=== PATIENT | male | born 1985 | race Caucasian/White ===

== ENCOUNTER 2016-12-30 20:51 | Observation (INO) | payer SELFPAY ==
[~2016-12-30] VITALS: Ht 182.9 cm; Wt 87.9 kg
[~2016-12-30 20:51] MED LIST: NO HOME MEDICATIONS
[2016-12-30 22:02] LABS: BASO # 0.1 (0.0-0.2); BASO % 0.3 % (0.0-2.0); EOS # 0.2 (0.0-0.7); EOS % 0.9 % (0-4.0); GRAN # 13.4 (1.4-6.5); GRAN % 76.8 % (42.2-75.2); HEMATOCRIT 51.9 % (42.0-52.0); HEMOGLOBIN 18.4 g/dl (13.5-18.0); LYMPH # 2.3 (1.2-3.4); LYMPH % 13.3 % (20.0-51.0); MEAN CELL VOLUME 90 fl (80.0-100.0); MEAN CORPUSCULAR HEMOGLOBIN 32 pg (27.0-31.0); MEAN CORPUSCULAR HGB CONC 36 g/dl (33.0-37.0); MEAN PLATELET VOLUME 9.4 fl (7.4-10.4); MONO # 1.5 (0.1-0.6); MONO % 8.3 % (1.7-9.3); PLATELET COUNT 336 K/mm3 (130-400); RED BLOOD COUNT 5.79 M/mm3 (4.20-5.60); REDCELL DISTRIBUTION WIDTH-CV 11.7 % (11.5-14.5); WHITE BLOOD COUNT 17.5 K/mm3 (4.8-10.8)
[2016-12-30 22:07] LABS: ADJUSTED CALCIUM 9.1 mg/dL (8.4-10.2); ALANINE AMINOTRANSFERASE 36 U/L (21-72); ALBUMIN 5.1 gm/dL (3.5-5.0); ALKALINE PHOSPHATASE 75 U/L (50-136); ANION GAP 15 mmol/L (7-16); BILIRUBIN,TOTAL 1.1 mg/dL (0.0-1.0); BLOOD UREA NITROGEN 14 mg/dL (9-20); CARBON DIOXIDE 25 mmol/L (22-30); CHLORIDE 97 mmol/L (98-107); CREATININE, serum 0.98 mg/dL (0.66-1.25); GLUCOSE 105 mg/dL (74-106); POTASSIUM 3.9 mmol/L (3.4-5.0); SODIUM 137 mmol/L (137-145); TOTAL PROTEIN 8.3 gm/dL (6.4-8.2)
[2016-12-30 22:09] LABS: ACETAMINOPHEN < 10 ug/mL (10-30); SALICYLATE < 1.0 mg/dL
[2016-12-30 22:26] LABS: AMPHETAMINE URINE NEGATIVE; BARBITURATES URINE NEGATIVE; BENZODIAZEPINES URINE NEGATIVE; BUPRENORPHINE URINE NEGATIVE; METHADONE URINE NEGATIVE; OPIATES URINE NEGATIVE; OXYCODONE URINE NEGATIVE; PHENCYCLIDINE URINE NEGATIVE; PROPOXYPHENE URINE NEGATIVE; THC CANNABINOIDS URINE POSITIVE
[2016-12-31] VITALS (551 sets, daily range): BP systolic 103–129; BP diastolic 72–84; PULSE 75–91; TEMP 97.4–98.5; O2SAT 87–100
[2017-01-01] VITALS (436 sets, daily range): BP systolic 110–142; BP diastolic 62–89; PULSE 79–112; TEMP 97–97.5; O2SAT 91–100
[2017-01-01 05:43] LABS: BASO # 0.1 (0.0-0.2); BASO % 0.6 % (0.0-2.0); EOS # 0.2 (0.0-0.7); EOS % 1.6 % (0-4.0); GRAN # 10.5 (1.4-6.5); GRAN % 74.9 % (42.2-75.2); HEMATOCRIT 45.9 % (42.0-52.0); LYMPH # 1.9 (1.2-3.4); LYMPH % 13.7 % (20.0-51.0); MEAN CELL VOLUME 92 fl (80.0-100.0); MEAN CORPUSCULAR HEMOGLOBIN 32 pg (27.0-31.0); MEAN CORPUSCULAR HGB CONC 35 g/dl (33.0-37.0); MEAN PLATELET VOLUME 9.5 fl (7.4-10.4); MONO # 1.2 (0.1-0.6); MONO % 8.8 % (1.7-9.3); PLATELET COUNT 237 K/mm3 (130-400); RED BLOOD COUNT 4.98 M/mm3 (4.20-5.60); WHITE BLOOD COUNT 14.1 K/mm3 (4.8-10.8)
[2017-01-01 05:44] LABS: HEMOGLOBIN 15.9 g/dl (13.5-18.0)
[2017-01-01 05:52] LABS: ADJUSTED CALCIUM 9.2 mg/dL (8.4-10.2); ALBUMIN 4.1 gm/dL (3.5-5.0); BILIRUBIN,TOTAL 1.6 mg/dL (0.0-1.0); CALCIUM 9.3 mg/dL (8.4-10.2); CREATININE, serum 0.98 mg/dL (0.66-1.25); POTASSIUM 4.3 mmol/L (3.4-5.0); TOTAL PROTEIN 6.6 gm/dL (6.4-8.2)
== END 2017-01-01 15:55 ==
LOC: COL.ER 20:51 → ICU 12-31 06:03
PROVIDERS: Emergency Medicine; Psychiatry & Neurology Psychiatry
DX: F22 Delusional disorders (principal); F20.9 Schizophrenia, unspecified; F29 Unspecified psychosis not due to a substance or known physiological condition; F12.20 Cannabis dependence, uncomplicated; Z81.8 Family history of other mental and behavioral disorders
CPT/HCPCS: 90791-AI; G0378; J1630; J2060

== ENCOUNTER → 2016-12-31 | Emergency (ER) | payer SELFPAY ==
[~2016-12-31] VITALS: Ht 188 cm; Wt 86.4 kg
[2016-12-31 09:20] VITALS: TEMP 96.8
[2016-12-31 12:34] VITALS: BP 117/79; PULSE 89
[2017-01-01 00:28] LABS: HIV 1 and 2 ANTIBODY SCRN-SO Negative (())
== END ==
LOC: COL.ER 09:17
PROVIDERS: Emergency Medicine
DX: F22 Delusional disorders (principal); F31.9 Bipolar disorder, unspecified; R45.1 Restlessness and agitation; S61.512A Laceration without foreign body of left wrist, initial encounter; W45.8XXA Other foreign body or object entering through skin, initial encounter; S00.81XA Abrasion of other part of head, initial encounter; Z77.098 Contact with and (suspected) exposure to other hazardous, chiefly nonmedicinal, chemicals; Y35.813A Legal intervention involving manhandling, suspect injured, initial encounter; Y92.238 Other place in hospital as the place of occurrence of the external cause; R00.0 Tachycardia, unspecified
CPT/HCPCS: J1630; J2060; J7030

== ENCOUNTER → 2019-01-09 | Outpatient (CLI) | payer MEDICAID | LOC: COL.RAD 14:30 | DX: N20.1 Calculus of ureter (principal) | CPT/HCPCS: Q9967 ==

== ENCOUNTER 2019-01-17 13:01 | Day surgery (SDC) | payer MEDICARE, MEDICAID ==
[~2019-01-17] VITALS: Ht 190.5 cm; Wt 106.6 kg
[2019-01-17 13:41] VITALS: BP 137/95; PULSE 75; TEMP 98.4
[2019-01-17] MEDS ORDERED: INDOCIN SR 75MG75 MG PO (14:10)
[2019-01-17] MEDS ORDERED: LATUDA20 MG PO (14:11)
[2019-01-17] MEDS ORDERED: NORCO 325 MG-51 TAB PO (14:12)
[2019-01-17] MEDS ORDERED: VYVANSE20 MG PO (14:13)
[2019-01-17] MEDS ORDERED: REXULTI0.5 MG PO (14:13)
[2019-01-17 17:14] VITALS: BP 140/84; PULSE 62; TEMP 98.1
--- NOTE | 2019-01-17 17:25 | NUR ---
Patient to room 350 from PACU post op cystoscopy. Alert and oriented, answers questions appropriately. Lungs CTA, heart tones strong and even. Urinated adequate amounts in PACU, requests food. Lunch pack provided. C/o of minimal burning with urination, no blood noted. Requests to discharge home with family at this time. No other c/o.
[2019-01-17 17:29] VITALS: BP 134/74; PULSE 77
--- NOTE | 2019-01-17 17:51 | NUR ---
Discharge instructions reviewed with patient, verbalized understanding. Discharged ambulatory to auto/home with family at 1750.
== END 2019-01-17 17:50 | disposition home or self-care (01) ==
LOC: SDCO 13:01
DX: N20.1 Calculus of ureter (principal); F17.210 Nicotine dependence, cigarettes, uncomplicated; F31.9 Bipolar disorder, unspecified; F25.9 Schizoaffective disorder, unspecified; R31.0 Gross hematuria; I10 Essential (primary) hypertension; G47.33 Obstructive sleep apnea (adult) (pediatric)
CPT/HCPCS: C1769; C1894; J0690; J1100; J2405; J2704; J3010; J7120; Q9967